=== PATIENT | female | born 1980 | race Two or more races ===

== ENCOUNTER 2025-05-05 17:07 | Emergency (ER) | payer BC, MEDICAID, SELFPAY ==
[2025-05-05 17:32] VITALS: BP 164/92; PULSE 90; RESP 18; TEMP 36.6; O2SAT 97; BMI 34.2
--- NOTE | 2025-05-05 19:31 | PC.NURSE ---
NO ANSWER AT ER LOBBY OR OUTSIDE ER TO BE SEEN.
--- NOTE | 2025-05-05 19:46 | PC.NURSE ---
NO ANSWER AT ER LOBBY OR OUTSIDE ER.
--- NOTE | 2025-05-09 | PD.EDADDENDU ---
Emergency Room Addendum Addendum Narrative: Before I saw the patient, patient eloped. Gigi Hernandez MD
== END 2025-05-05 20:24 | disposition left against medical advice (07) ==
PROVIDERS: Emergency Provider Emergency Medicine; PCP Family Medicine
DX: Z53.21 Procedure and treatment not carried out due to patient leaving prior to being seen by health care provider (principal)
CPT/HCPCS: 99281